=== PATIENT | male | born 1995 | race Caucasian/White ===

== ENCOUNTER 2017-10-08 19:30 | Emergency (ER) | payer OTHER ==
[2017-10-08] MEDS: HYDROCODONE/APAP (5/325) TAB PO (20:11)
[2017-10-08] MEDS: ONDANSETRON (ODT) 4 MG TAB ODT (20:11)
== END 2017-10-08 21:37 | disposition home or self-care (01) ==
LOC: FTE 19:30
DX: S06.0X9A Concussion with loss of consciousness of unspecified duration, initial encounter (principal); R51 Headache; R11.2 Nausea with vomiting, unspecified; Y04.2XXA Assault by strike against or bumped into by another person, initial encounter; Y92.9 Unspecified place or not applicable
CPT/HCPCS: 70450; 99284-25